=== PATIENT | female | born 2005 | race Caucasian/White ===

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

== ENCOUNTER 2024-03-11 08:38 | Emergency (ER) | payer BC, SELFPAY ==
[2024-03-11 08:41] VITALS: BP 157/98; PULSE 77; RESP 14; TEMP 36.6; O2SAT 100
[2024-03-11 08:49] VITALS: RESP 14
--- NOTE | 2024-03-11 09:00 | DI.CT_ITS ---
Exam(s) CT ABDOMEN PELVIS W EXAM: CT ABDOMEN PELVIS W CLINICAL HISTORY: LLQ abd pain, Vomiting,. TECHNIQUE: Imaging Protocol: Axial computed tomography images with coronal and sagittal reformatted images were created and reviewed CONTRAST MATERIAL: Intravenous: Omnipaque-350 100cc Oral: None COMPARISON: No exams were available for comparison FINDINGS: VISUALIZED LUNG BASES: No nodules nor pleural effusions evident. ABDOMEN: There is no ascites. LIVER: There are no focal hepatic lesions evident. No dilated intrahepatic ducts. GALLBLADDER/BILIARY: No obvious gallbladder pathology. CBD is not dilated. PANCREAS: No evidence of pancreatic mass nor dilatation of the pancreatic duct. SPLEEN: Spleen is not enlarged. No obvious intrasplenic lesions. Splenic and portal veins are paten t. ADRENALS: There are no significant adrenal masses. KIDNEYS:No cysts evident. No solid renal masses. No calculi nor hydronephrosis.. ABDOMINAL AORTA: Abdominal aorta is not enlarged. LYMPH NODES:There is no retroperitoneal nor paraaortic adenopathy. ABDOMINAL WALL: No evidence of significant anterior abdominal wall nor inguinal hernia. GI: There is no evidence of bowel obstruction, free air, nor abscess. PELVIS: GI: No evidence of appendicitis.No evidence of sigmoid diverticulitis. LYMPH NODES: There is no intrapelvic nor inguinal adenopathy. REPRODUCTIVE: Uterus anteverted and exhibits normal size. There is a E peripherally enhancing corpus luteal cyst in the left ovary which measures 2 x 1.5 cm. Small follicular cysts are noted in the ri ght ovary. No extraovarian adnexal masses and no free fluid in the pelvis evident. URINARY BLADDER: Uniform thickening of the urinary bladder wall is probably related to under distensi on versus cystitis. There are no blood clots in the bladder lumen. OSSEOUS: No fractures and no significant osseous lesions. There are bilateral pars interarticularis defects evident at the L5 level. There is minimal anteroli sthesis of L5 upon S1. Sacroiliac joints appear unremarkable. IMPRESSION: 1. No evidence of appendicitis nor diverticulitis. 2. There is a peripherally enhancing 2 x 1.5 cm corpus luteal cyst in left ovary. 3. Uniform thickening of the urinary bladder wall is probably due to under distension of the bladder but cannot exclude cystitis. Correlation with clinical findings and urinalysis recommended. 4. Bilateral pars defects at L5 level incidentally noted. Minimal if any significant listhesis seen at this level and no disc space narrowing. Called by myself to ER provider 03/11/2024 10:50 a.m. RADIATION DOSE DELIVERED: Total DLP DATA REPOSITORY: All CT scans at this facility are submitted to the National Radiology Data Registry (NRDR) Dose Index Registry (DIR) with the [employer] (ACR). RADIATION OPTIMIZATION: All CT scans at this facility use at least one of these dose optimization te chniques: automated exposure control; mA and/or kV adjustment per patient size (includes targeted exa ms where dose is matched to clinical indication); or iterative reconstruction.
--- NOTE | 2024-03-11 09:13 | DI.RAD_ITS ---
Exam(s) XR CHEST 2V PA LATERAL EXAM: XR CHEST 2V PA LATERAL CLINICAL HISTORY: Cough, URI, PUI. TECHNIQUE: 2D digital imaging was performed. COMPARISON: No exams were available for comparison FINDINGS: 2 views: Heart size is normal. The mediastinum is not widened. Lungs are clear. No infiltrates nor pleural effusions. IMPRESSION: No acute pulmonary findings. DATA REPOSITORY: RADIATION DOSE DELIVERED:
--- NOTE | 2024-03-11 09:14 | ED.GENADUL_ITS ---
Discharge Plan Disposition Patient Disposition: Home Condition: Stable Discharge Details Clinical Impression: Left ovarian cyst, Vomiting, Viral URI Primary Care Provider: Brennon Serra ED Provider: Rosa Maria Singh Home Meds and New Rx's Prescriptions: New ondansetron 4 mg tablet,disintegrating 4 mg PO Q8H PRN (Reason: nausea and vomiting) 4 Days Qty: 12 0RF Rx Instructions: Take 1 tablet up to 3 times daily as needed for nausea and vomiting 20 minutes prior to meals. No Action magnesium 200 mg tablet 400 mg PO DAILY Children Multivitamin Tablet,Chewable 1 tab PO DAILY ashwagandha extract 120 mg capsule See Rx Instructions PO .COMPLEX Rx Instructions: orally; taking Discharge Instructions Instructions: Viral Upper Respiratory Infection, Adult (DC), Nausea and Vomiting, Adult ED, Ovarian Cyst ED Additional Instructions: At this time CT shows a left ovarian cyst. Some women have these more often around ovulation, this most likely is what is causing her pain. No evidence of of COVID flu RSV or strep at this time chest x-ray within normal limits. No evidence for urinary tract infection. Labs are largely within normal limits. You are slightly dehydrated you were given some IV fluids here. Please take the nausea medication as directed up to 3 times daily 20 minutes before eating or drinking anything as prescribed. Follow up with primary care provider in 3-5 days. Return to ED sooner if any worsening or concerns. Increase oral fluids while having vomiting and diarrhea you may increase electrolyte drinks such as Gatorade or similar. Referrals: [facility] [Provider Group] - 5 days (Left ovarian cyst) Brennon Serra, [employer] [Primary Care Provider] - 2 weeks HPI General Mode of arrival: ambulatory . Date/Time Provider Initiated Documentation: 03/11/24 09:02 . Limitations to Documentation: no limitations . Information obtained by: patient, RN notes reviewed and old records reviewed . HPI Narrative: 18-year-old female presents to the ER with a chief complaint of emesis at least once a week which she reports is chronic. Associated with left lower quadrant abdominal cramping, she also reports URI type symptoms, cold sweats, runny nose ear pain loss of hearing to her left ear and productive cough with green sputum. Also associated with diarrhea. Denies any sick contacts or recent travel. She had a negative home COVID test on Saturday. No significant past medical history meds or allergies. Last normal menstrual period but transition is approximately 1 month ago 02/15/2024. Denies any possibility of . She denies smoking drugs or alcohol. Related Data Home Medications ?Medication ?Instructions ?Recorded ?Confirmed magnesium 200 mg tablet 400 mg PO DAILY 07/10/21 03/11/24 pediatric multivitamin no.136 1 tab PO DAILY 08/22/22 03/11/24 (Children Multivitamin chewable tablet) ashcristodha extract 120 mg capsule See Rx Instructions PO .COMPLEX 09/12/23 03/11/24 ondansetron 4 mg disintegrating 4 mg PO Q8H PRN nausea and 03/11/24 tablet vomiting 4 days #12 tabs Previous Rx's ?Medication ?Instructions ?Recorded ondansetron 4 mg disintegrating 4 mg PO Q8H PRN nausea and 03/11/24 tablet vomiting 4 days #12 tabs Allergies Allergy/AdvReac Type Severity Reaction Status Date / Time No Known Allergies Allergy Verified 03/11/24 08:51 General Stated Complaint: Nausea/Vomit/Diar MELANIA: 3 Review of Systems All systems reviewed & are unremarkable except as noted in HPI and below Gastrointestinal Gastrointestinal: Reports abdominal pain, Reports diarrhea, Reports nausea, Reports vomiting and Denies hematemesis Exam Narrative Exam Narrative: Constitutional: Alert and oriented x3. Appears stated age. Normal body habitus. Head: Normocephalic, no trauma. Eyes: Pupils PERRL, Red reflex noted, EOM's intact. Eyelids symmetrical without lesions, discharge, or swelling. ENT: Bilateral TM's hard to visualize due to very small ear canals, no erythema or bulging TMs what I could see,, External ear normal to inspection, no mastoid TTP, swelling, or erythema, Nasal turbinates WNL, no nasal discharge. Normal dentition, Posterior pharynx slightly erythemic, uvula midline, no exudate. Chest: RRR, Normal S1, S2, distal pulses intact. Resp: Lungs clear to auscultation bilaterally, no wheezes, rales, or rhonchi. Abdomen: Soft, non-distended, Normoactive bowel sounds all 4 quads. Musculoskeletal: Normal gait, Moves all 4 extremities without difficulty. Skin: No suspicious rashes or lesions. Capillary refill less than 2 sec. Neurologic: Cranial nerves II-XII intact. Alert and oriented x 3. Motor: No deficits noted. Sensory: Intact bilaterally all 4 extremities. Hematologic/Lymphatic: No ecchymosis, no lymphadenopathy. Course Vital Signs Vital signs: Vital Signs Temperature 36.6 C 03/11/24 08:41 Pulse 77 03/11/24 08:41 Respiratory Rate 14 03/11/24 08:41 Blood Pressure 157/98 H 03/11/24 08:41 Pulse Oximetry 100 03/11/24 08:41 Temperature 36.6 C 03/11/24 08:41 Temperature Source Oral 03/11/24 08:41 Pulse 77 03/11/24 08:41 Respiratory Rate 14 03/11/24 08:49 Respiratory Effort Normal, Non-Labored 03/11/24 08:49 Respiratory Depth Normal 03/11/24 08:49 Respiratory Pattern Normal 03/11/24 08:49 Blood Pressure 157/98 H 03/11/24 08:41 Blood Pressure Position Sitting 03/11/24 08:41 Pulse Oximetry 100 03/11/24 08:41 Oxygen Delivery Method Room Air 03/11/24 08:41 Oxygen Flow Rate 0 03/11/24 08:41 Pain Level 0 03/11/24 08:41 Medical Decision Making 18-year-old female presents to the ER with a chief complaint of emesis at least once a week which she reports is chronic. Associated with left lower quadrant abdominal cramping, she also reports URI type symptoms, cold sweats, runny nose ear pain loss of hearing to her left ear and productive cough with green sputum. Also associated with diarrhea. Denies any sick contacts or recent travel. She had a negative home COVID test on Saturday. No significant past medical history meds or allergies. Last normal menstrual period but transition is approximately 1 month ago 02/15/2024. Denies any possibility of . She denies smoking drugs or alcohol. Workup ordered including Fluvid swab, chest x-ray CT abdomen pelvis labs including CBC CMP lipase urinalysis urine test. Labs show white blood cell count 11.57 RBCs 5.44, absolute neutrophil 9.02, CMP largely within normal limits, lipase within normal limits, urinalysis shows trace blood 80 ketones small bilirubin negative leukocytes negative nitrites culture not indicated at this time. COVID flu RSV negative. Chest x-ray shows no acute findings. She does have a left ovarian cyst which may be the cause for her pain. Along with a viral URI. Unclear of what is causing the vomiting, I will discuss with her Pepcid or an antacid and follow-up with her primary care provider. Will send her home with some Cheryl and have her follow-up regarding her ovarian cyst with [facility]. Discussed results she verbalized understanding. All her questions were answered to the best my ability. This text was generated using C[employer] to uation system, please disregard any oddities of phrase or misspellings. Medical Records Medical records reviewed: Yes I reviewed the patient's medical records. Imaging Data Radiologic Study: Imaging: CT Scan Radiologist's impression: Exam(s) a CT:CT abdomen & pelvis w Exam(s) CT ABDOMEN PELVIS W EXAM: CT ABDOMEN PELVIS W CLINICAL HISTORY: LLQ abd pain, Vomiting,. TECHNIQUE: Imaging Protocol: Axial computed tomography images with coronal and sagittal reformatted images were created and reviewed CONTRAST MATERIAL: Intravenous: Omnipaque-350 100cc Oral: None COMPARISON: No exams were available for comparison FINDINGS: VISUALIZED LUNG BASES: No nodules nor pleural effusions evident. ABDOMEN: There is no ascites. LIVER: There are no focal hepatic lesions evident. No dilated intrahepatic d ucts. GALLBLADDER/BILIARY: No obvious gallbladder pathology. CBD is not dilated. PANCREAS: No evidence of pancreatic mass nor dilatation of the pancreatic duct. SPLEEN: Spleen is not enlarged. No obvious intrasplenic lesions. Splenic and portal veins are patent. ADRENALS: There are no significant adrenal masses. KIDNEYS:No cysts evident. No solid renal masses. No calculi nor hydronephr osis.. ABDOMINAL AORTA: Abdominal aorta is not enlarged. LYMPH NODES:There is no retroperitoneal nor paraaortic adenopathy. ABDOMINAL WALL: No evidence of significant anterior abdominal wall nor inguinal hernia. GI: There is no evidence of bowel obstruction, free air, nor abscess. PELVIS: GI: No evidence of appendicitis.No evidence of sigmoid diverticulitis. LYMPH NODES: There is no intrapelvic nor inguinal adenopathy. REPRODUCTIVE: Uterus anteverted and exhibits normal size. There is a E peripherally enhancing corpus luteal cyst in the left ovary which measures 2 x 1.5 cm. Small follicular cysts are noted in the right ovary. No extraovarian adnexal masses and no free fluid in the pelvis evident. URINARY BLADDER: Uniform thickening of the urinary bladder wall is probably related to under distension versus cystitis. There are no blood clots in the bladder lumen. OSSEOUS: No fractures and no significant osseous lesions. There are bilateral pars interarticularis defects evident at the L5 level. There is minimal anterolisthesis of L5 upon S1. Sacroiliac joints appear unremarkable. IMPRESSION: 1. No evidence of appendicitis nor diverticulitis. 2. There is a peripherally enhancing 2 x 1.5 cm corpus luteal cyst in left ovary. 3. Uniform thickening of the urinary bladder wall is probably due to under distension of the bladder but cannot exclude cystitis. Correlation with clinical findings and urinalysis recommended. 4. Bilateral pars defects at L5 level incidentally noted. Minimal if any significant listhesis seen at this level and no disc space narrowing. Called by myself to ER provider 03/11/2024 10:50 a.m. Lab Data Lab results reviewed: Yes I reviewed the patient's lab results. Labs: 03/11/24 09:34 Tonsil - Not Specified Group A Streptococcus Culture - Pending Laboratory Tests Range/Units 03/11/24 09:40 WBC (4.4-10.8) 10^3/uL 11.57 H RBC (3.93-5.22) 10^6/uL 5.44 H Hgb (11.2-15.7) g/dL 14.9 Hct (36.0-46.0) % 44.8 MCV (80-95) fL 82 MCH (27.0-33.0) pg 27.4 MCHC (32.0-36.0) % 33.3 RDW (11.7-14.6) % 12.8 Plt Count (130-400) 10^3/uL 280 MPV (8.0-11.0) fL 10.9 Immature Gran % % 0.3 Neutrophils % % 78.0 Lymphocytes % % 18.2 Monocytes % % 2.9 Eosinophils % % 0.3 Basophils % % 0.3 Nucleated RBC % (0.0-0.3) % 0.0 Absolute Neutrophils (1.2-6.7) 10^3/uL 9.02 H Absolute Lymphocytes (1.2-3.4) 10^3/uL 2.11 Absolute Monocytes (0.1-0.8) 10^3/uL 0.34 Absolute Eosinophils (0.0-0.7) 10^3/uL 0.03 Absolute Basophils (0.0-0.2) 10^3/uL 0.03 Sodium (136-145) mmol/L 141 Potassium (3.5-5.1) mmol/L 3.6 Chloride (98-107) mmol/L 103 Carbon Dioxide (21.0-32.0) mmol/L 26.1 Anion Gap (3-11) mmol/L 11.9 H BUN (7-18) mg/dL 12 Creatinine (0.55-1.02) mg/dL 0.7 Est GFR (CKD-EPI 2020) (mL/min/1.73m2) 127.69 Glucose (74-106) mg/dL 97 Calcium (8.5-10.1) mg/dL 10.1 Magnesium (1.8-2.4) mg/dL 1.9 Total Bilirubin (0.2-1.0) mg/dL 0.35 AST (15-37) U/L 14 L ALT (14-59) U/L 24 Alkaline Phosphatase (46-116) U/L 83 Total Protein (6.4-8.2) g/dL 8.9 H Albumin (3.4-5.0) g/dL 4.4 Lipase (16-77) U/L 26 Urine Color (Yellow) Yellow Urine Clarity (Clear) Clear Urine pH (5-8) 5.5 Ur Specific [place] (1.005-1.025) >= 1.030 H Urine Protein (Neg-Trace) mg/dL Negative Urine Ketones (Negative) mg/dL 80 H Urine Blood (Negative) Trace-lysed H Urine Nitrite (Negative) Negative Urine Bilirubin (Negative) Small H Urine Urobilinogen (Up to 0.2) mg/dL 0.2 Ur Leukocyte Esterase (Negative) Negative Urine RBC (0-2) HPF 0-2 Urine WBC (0-5) HPF Negative Ur Epithelial Cells (Negative) HPF Rare Urine Crystals (Negative) HPF Negative Urine Bacteria (Negative) HPF Negative Urine Casts (Negative) LPF Negative Urine Mucus (Negative) Trace Ur Culture Indicated? No Urine Glucose (Negative) mg/dL Negative COVID-19 Source Nasopharynx SARS-CoV-2 (PCR) (Negative) Negative Influenza Type A (PCR) (Negative) Negative Influenza Type B (PCR) (Negative) Negative RSV (PCR) (Negative) Negative Quality:SDOH Health Related Social Needs: No Data to Display PFSH All Active Problems (Updated 03/11/24 @ 11:08 by Rosa Maria Singh NP) Viral URI (Acute) Vomiting (Acute) Left ovarian cyst (Acute) Dysmenorrhea in adolescent (Acute) improved on Xulane Suicide gesture (Acute) Anxiety (Chronic) Trichotillomania (Acute) Encounter for well adolescent visit (Acute) Hyperhidrosis of palms and soles (Acute 07/13/14) Body mass index, pediatric, 85th percentile to less than 95th percentile for age (Acute 07/13/14) Keratosis pilaris (Acute 08/20/16) Medical History Chronic headaches improved with Magnesium, stopped taking Impacted cerumen of both ears recurrent with small ear canals Hyperhidrosis of feet Surgical History Tooth extraction 7 extractions, spring 2015 Family History Mother Healthy adult on routine physical examination Father Essential hypertension Hypothyroid Sister No problems noted. Grandfather Essential hypertension both GF Heart disease PGF- massive [place] age 62yr- Hyperlipidemia Parkinson disease MGF Social History Smoking/Tobacco Use Status: Never Second Hand Exposure: No Smoking risk assessment performed?: Yes Alcohol Intake: never Drug use: Never Substance use type: does not use Housing: house Communication Needs: None Education Level: high school Details: [employer] Pets and animals: Yes Pets and animals: dog(s) Do you feel safe at home: Yes Do you feel safe in your relationship?: Yes
[2024-03-11 09:46] LABS: Bilirubin Small (Negative); Blood Trace-lysed (Negative); Clarity Clear (Clear); Glucose Negative (Negative); Ketones 80 mg/dL (Negative); Leukocyte Esterase Negative (Negative); Nitrite Negative (Negative); Specific Gravity >= 1.030 (1.005-1.025); Urobilinogen 0.2 mg/dL (Up to 0.2); pH 5.5 (5-8)
[2024-03-11] MEDS: Ondansetron 4 MG/2 ML VIAL IVP (09:48)
[2024-03-11] MEDS: Normal Saline Flush 10 ML SYR IVP (09:48)
[2024-03-11] MEDS: Normal Saline 1,000 ML 1000 ML IV (09:48)
[2024-03-11 09:50] LABS: Abs Immature Grans 0.03 10^3/uL (0.0-0.06); Absolute Basophil Count 0.03 10^3/uL (0.0-0.2); Absolute Eosinophil Count 0.03 10^3/uL (0.0-0.7); Absolute Lymphocyte Count 2.11 10^3/uL (1.2-3.4); Absolute Monocyte Count 0.34 10^3/uL (0.1-0.8); Basophils % 0.3 %; Eosinophils % 0.3 %; HCT 44.8 % (36.0-46.0); HGB 14.9 g/dL (11.2-15.7); Immature Grans % 0.3 %; Lymphocytes % 18.2 %; MCH 27.4 pg (27.0-33.0); MCHC 33.3 % (32.0-36.0); MCV 82 fL (80-95); MPV 10.9 fL (8.0-11.0); Monocytes % 2.9 %; Platelet Count 280 10^3/uL (130-400); RBC 5.44 10^6/uL (3.93-5.22); RDW 12.8 % (11.7-14.6); RDW-SD 38.3 fL; WBC 11.57 10^3/uL (4.4-10.8)
[2024-03-11 09:51] LABS: Absolute Neutrophil Count 9.02 10^3/uL (1.2-6.7)
[2024-03-11 09:57] LABS: Bacteria Negative HPF (Negative); C & S Indicated? No; Casts Negative LPF (Negative); Crystals Negative HPF (Negative); Epithelial Cells Rare HPF (Negative); Mucus Trace (Negative); RBC 0-2 HPF (0-2); WBC Negative HPF (0-5)
[2024-03-11 10:25] LABS: COVID-19 PCR Negative (Negative); Influenza A PCR Negative (Negative); Influenza B PCR Negative (Negative); RSV PCR Negative (Negative)
[2024-03-11] MEDS: Omnipaque 350 MG/ML 100 ML BTL IJ (10:29)
[2024-03-11 10:32] LABS: Source Nasopharynx
[2024-03-11] MEDS: Normal Saline - Diluent 50 ML VIAL IV (10:32)
[2024-03-11 10:37] LABS: ALT 24 U/L (14-59); AST 14 U/L (15-37); Albumin 4.4 g/dL (3.4-5.0); Alkaline Phosphatase 83 U/L (46-116); Anion Gap 11.9 mmol/L (3-11); BUN 12 mg/dL (7-18); Bilirubin, Total 0.35 mg/dL (0.2-1.0); CO2 26.1 mmol/L (21.0-32.0); CREATININE 0.7 mg/dL (0.55-1.02); Calcium 10.1 mg/dL (8.5-10.1); Chloride 103 mmol/L (98-107); Estimated GFR 127.69 (mL/min/1.73m2); Glucose 97 mg/dL (74-106); Lipase 26 U/L (16-77); Magnesium 1.9 mg/dL (1.8-2.4); Potassium 3.6 mmol/L (3.5-5.1); Sodium 141 mmol/L (136-145); Total Protein 8.9 g/dL (6.4-8.2)
[2024-03-11 11:34] VITALS: BP 124/74; PULSE 60; RESP 14; TEMP 37.1; O2SAT 98
== END 2024-03-11 11:51 | disposition home or self-care (01) ==
PROVIDERS: Emergency Provider Registered Nurse Emergency; PCP Nurse Practitioner Pediatrics
DX: R11.2 Nausea with vomiting, unspecified (principal); R19.7 Diarrhea, unspecified; R05.1 Acute cough; J06.9 Acute upper respiratory infection, unspecified; N83.202 Unspecified ovarian cyst, left side; R10.32 Left lower quadrant pain
CPT/HCPCS: 80053; 81025; 83690; 87637; 87880; 96361; 96374; 99285; 71046; 74177; 81003; 81015; 83735; 85025; 87081; 99283; J2405; J3490

== ENCOUNTER 2024-03-19 23:25 | Emergency (ER) | payer BC, SELFPAY ==
[2024-03-19 23:29] VITALS: BP 131/84; PULSE 69; RESP 12; TEMP 36.2; O2SAT 97
--- NOTE | 2024-03-19 23:30 | RT.EKG_ITS ---
APPROVED REPORT Exam: Resting ECG Reason for Exam: palpitations Patient Location: E HR:55 bpm ECG Measurements Heart Rate 55 AXIS ME 143 P 10 QRSd 91 QRS 4 QT 463 T 21 QTc 445 Conclusion Sinus bradycardia...rate< 60 Physician: no stemi
[2024-03-19 23:41] VITALS: PULSE 60; RESP 14; O2SAT 97
[2024-03-19 23:47] VITALS: BP 117/89; PULSE 59; O2SAT 97
[2024-03-19 23:50] VITALS: O2SAT 97
[2024-03-20] VITALS (25 sets, daily range): BP systolic 92–151; BP diastolic 66–101; PULSE 52–85; RESP 11–26; O2SAT 96–100
[2024-03-20 00:16] LABS: Abs Immature Grans 0.03 10^3/uL (0.0-0.06); Absolute Basophil Count 0.02 10^3/uL (0.0-0.2); Absolute Eosinophil Count 0.01 10^3/uL (0.0-0.7); Absolute Lymphocyte Count 1.72 10^3/uL (1.2-3.4); Absolute Monocyte Count 0.82 10^3/uL (0.1-0.8); Absolute Neutrophil Count 6.62 10^3/uL (1.2-6.7); Basophils % 0.2 %; Eosinophils % 0.1 %; HCT 40.4 % (36.0-46.0); HGB 13.6 g/dL (11.2-15.7); Immature Grans % 0.3 %; Lymphocytes % 18.7 %; MCH 27.6 pg (27.0-33.0); MCHC 33.7 % (32.0-36.0); MCV 82 fL (80-95); MPV 10.9 fL (8.0-11.0); Monocytes % 8.9 %; Neutrophils % 71.8 %; Platelet Count 286 10^3/uL (130-400); RBC 4.92 10^6/uL (3.93-5.22); RDW-SD 38.2 fL; WBC 9.22 10^3/uL (4.4-10.8)
[2024-03-20] MEDS: Lactated Ringers 1,000 ML 1000 ML IV (00:17)
[2024-03-20] MEDS: Metoclopramide 10 MG/2 ML VIAL IVP (00:21)
[2024-03-20] MEDS: Normal Saline 50 ML 500 ML (00:21)
[2024-03-20] MEDS: Ondansetron 4 MG/2 ML VIAL IVP (00:24)
[2024-03-20 00:35] LABS: Bilirubin Negative (Negative); Blood Negative (Negative); Clarity Sl Cloudy (Clear); Glucose Negative (Negative); Ketones 15 mg/dL (Negative); Leukocyte Esterase Negative (Negative); Nitrite Negative (Negative); Specific Gravity >= 1.030 (1.005-1.025); Urobilinogen 0.2 mg/dL (Up to 0.2)
[2024-03-20 00:42] LABS: ALT 22 U/L (14-59); AST 14 U/L (15-37); Albumin 4.2 g/dL (3.4-5.0); Alkaline Phosphatase 70 U/L (46-116); Anion Gap 11.7 mmol/L (3-11); BUN 13 mg/dL (7-18); Bilirubin, Total 0.39 mg/dL (0.2-1.0); CO2 26.3 mmol/L (21.0-32.0); CREATININE 0.9 mg/dL (0.55-1.02); Chloride 105 mmol/L (98-107); Estimated GFR 94.44 (mL/min/1.73m2); Glucose 106 mg/dL (74-106); Lipase 19 U/L (16-77); Potassium 3.4 mmol/L (3.5-5.1); Sodium 143 mmol/L (136-145); TSH (W/Ref FT4) 2.64 uIU/mL (0.52-4.13); Total Protein 8.2 g/dL (6.4-8.2)
--- NOTE | 2024-03-20 00:59 | W.ED.GENAD ---
Discharge Plan Disposition Patient Disposition: Home Condition: Good Discharge Details Clinical Impression: Nausea & vomiting, Dehydration Primary Care Provider: [facility]Local ED Provider: Zackery Sotelo Home Meds and New Rx's Prescriptions: No Action magnesium 200 mg tablet 400 mg PO DAILY Children Multivitamin Tablet,Chewable 1 tab PO DAILY ashwagandha extract 120 mg capsule See Rx Instructions PO .COMPLEX Rx Instructions: orally; taking ondansetron 4 mg tablet,disintegrating 4 mg PO PRN Patient Comments: TAKE ONE TABLET BY MOUTH UP TO THREE TIMES DAILY NEEDED FOR NAUSEA AND VOMITING 20 MIN. PRIOR TO MEALS norelgestromin-ethin.estradiol [Zafemy] 150-35 mcg/24 hr patch weekly 1 patch transdermal Q7D Discharge Instructions Instructions: Dehydration, Adult ED, Nausea and Vomiting, Adult ED Additional Instructions: At this time your laboratory workup has returned very reassuring. You were dehydrated and you have been rehydrated. Please take your home Zofran as needed. Continue to drink plenty of fluids at home. If you notice any worsening of your symptoms, or any new symptoms such as vomiting, diarrhea, fever, chills, shortness of breath, chest pain, numbness, weakness, or fainting , please return immediately to the emergency department for reevaluation. Please follow up with your primary care provider as soon as possible for reassessment and reevaluation. As always, it was a pleasure participating in your medical care today. HPI General Date/Time Provider Initiated Documentation: 03/19/24 23:51. HPI Narrative: This is a 18-year-old female with a past medical history of recently diagnosed left ovarian cyst 7 days ago, who presents today for nausea vomiting and diarrhea. About 2 weeks ago she developed mild left lower quadrant achiness, she went into the ER 1 week ago and was diagnosed with a small left-sided ovarian cyst. Over the past week the pain has essentially resolved, however today she developed nausea vomiting and diarrhea, she had about 20 episodes of vomiting. She denies any blood in her stool or vomitus. She did try taking Zofran at home but she was still not able to keep anything down. No other complaints at this time, no other modifying factors. Related Data Home Medications ?Medication ?Instructions ?Recorded ?Confirmed magnesium 200 mg tablet 400 mg PO DAILY 07/10/21 03/19/24 pediatric multivitamin no.136 1 tab PO DAILY 08/22/22 03/19/24 (Children Multivitamin chewable tablet) wilbera extract 120 mg capsule See Rx Instructions PO .COMPLEX 09/12/23 03/19/24 norelgestromin 150 mcg-e.estradiol 1 patch transdermal Q7D 03/19/24 03/19/24 35 mcg/24 hr weekly transderm patch (Zafemy) ondansetron 4 mg disintegrating 4 mg PO PRN 03/19/24 03/19/24 tablet Allergies Allergy/AdvReac Type Severity Reaction Status Date / Time No Known Allergies Allergy Verified 03/19/24 23:41 General Stated Complaint: Palpitatns MELANIA: 2 Review of Systems All systems reviewed & are unremarkable except as noted in HPI and below Exam Narrative Exam Narrative: 1.Const: Well-nourished, Well-developed, appearing stated age 2.Eyes: PERRL, no conjunctival injection, and symmetrical lids. 3.ENT: Atraumatic external nose and ears. Dry MM. Neck: Symmetric, trachea midline, No thyromegaly. 4.CVS: +S1/S2, No murmurs or gallops. Peripheral pulses 2+ and equal in all extremities. Brisk capillary refill in all extremities. 5.RESP: Unlabored respiratory effort. Clear to auscultation bilaterally. No wheezes rales or rhonchi 6.GI: Soft, Nontender/Nondistended, No hepatosplenomegaly. No guarding or rebound. No pain at [place]'s point, negative Aguilar sign. 7.MSK: Normocephalic/Atraumatic, Extremities w/o deformity or ttp No cyanosis or clubbing, Normal movement of all extremities 8.Skin: Warm, Dry. No rashes or lesions. 9.Neuro: therapeutic assistant II-XII grossly intact. Sensation grossly intact, no focal neurologic deficits. 10.Psych: (AAO) x3. Appropriate mood and affect Course Vital Signs Vital signs: Vital Signs Temperature 36.2 C L 03/19/24 23:29 Pulse 69 03/19/24 23:29 Respiratory Rate 12 03/19/24 23:29 Blood Pressure 131/84 03/19/24 23:29 Pulse Oximetry 97 03/19/24 23:29 Temperature 36.2 C L 03/19/24 23:29 Temperature Source Skin 03/19/24 23:29 Pulse 56 L 03/20/24 00:31 Pulse 65 03/20/24 00:31 Respiratory Rate 21 03/20/24 00:31 Respiratory Effort Normal 03/19/24 23:43 Blood Pressure 150/88 H 03/20/24 00:31 Blood Pressure Mean 107 03/20/24 00:31 Blood Pressure Position Sitting 03/19/24 23:29 Pulse Oximetry 96 03/20/24 00:31 Oxygen Delivery Method Room Air 03/19/24 23:29 Oxygen Flow Rate 0 03/19/24 23:29 Pain Level 5 03/19/24 23:29 Comment pain L lower quad 03/19/24 23:29 Lab/Test Results Lab/Test Results: Laboratory Tests Range/Units 03/20/24 03/20/24 00:10 00:30 WBC (4.4-10.8) 10^3/uL 9.22 RBC (3.93-5.22) 10^6/uL 4.92 Hgb (11.2-15.7) g/dL 13.6 Hct (36.0-46.0) % 40.4 MCV (80-95) fL 82 MCH (27.0-33.0) pg 27.6 MCHC (32.0-36.0) % 33.7 RDW (11.7-14.6) % 13.0 Plt Count (130-400) 10^3/uL 286 MPV (8.0-11.0) fL 10.9 Immature Gran % % 0.3 Neutrophils % % 71.8 Lymphocytes % % 18.7 Monocytes % % 8.9 Eosinophils % % 0.1 Basophils % % 0.2 Nucleated RBC % (0.0-0.3) % 0.0 Absolute Neutrophils (1.2-6.7) 10^3/uL 6.62 Absolute Lymphocytes (1.2-3.4) 10^3/uL 1.72 Absolute Monocytes (0.1-0.8) 10^3/uL 0.82 H Absolute Eosinophils (0.0-0.7) 10^3/uL 0.01 Absolute Basophils (0.0-0.2) 10^3/uL 0.02 Sodium (136-145) mmol/L 143 Potassium (3.5-5.1) mmol/L 3.4 L Chloride (98-107) mmol/L 105 Carbon Dioxide (21.0-32.0) mmol/L 26.3 Anion Gap (3-11) mmol/L 11.7 H BUN (7-18) mg/dL 13 Creatinine (0.55-1.02) mg/dL 0.9 Est GFR (CKD-EPI 2020) (mL/min/1.73m2) 94.44 Glucose (74-106) mg/dL 106 Calcium (8.5-10.1) mg/dL 10.0 Magnesium (1.8-2.4) mg/dL 2.0 Total Bilirubin (0.2-1.0) mg/dL 0.39 AST (15-37) U/L 14 L ALT (14-59) U/L 22 Alkaline Phosphatase (46-116) U/L 70 Total Protein (6.4-8.2) g/dL 8.2 Albumin (3.4-5.0) g/dL 4.2 Lipase (16-77) U/L 19 TSH (0.52-4.13) uIU/mL 2.64 Urine Color (Yellow) Yellow Urine Clarity (Clear) Sl Cloudy Urine pH (5-8) 6.0 Ur Specific [place] (1.005-1.025) >= 1.030 H Urine Protein (Neg-Trace) mg/dL Trace Urine Ketones (Negative) mg/dL 15 H Urine Blood (Negative) Negative Urine Nitrite (Negative) Negative Urine Bilirubin (Negative) Negative Urine Urobilinogen (Up to 0.2) mg/dL 0.2 Ur Leukocyte Esterase (Negative) Negative Urine Glucose (Negative) mg/dL Negative Medical Decision Making This is a 18-year-old female with a past medical history of recently diagnosed left ovarian cyst 7 days ago, who presents today for nausea vomiting and diarrhea. About 2 weeks ago she developed mild left lower quadrant achiness, she went into the ER 1 week ago and was diagnosed with a small left-sided ovarian cyst. Over the past week the pain has essentially resolved, however today she developed nausea vomiting and diarrhea, she had about 20 episodes of vomiting. She denies any blood in her stool or vomitus. She did try taking Zofran at home but she was still not able to keep anything down. No other complaints at this time, no other modifying factors. Exam demonstrates well-appearing female, dry mucous membranes, no abdominal pain or tenderness. No signs of an acute surgical abdomen. No pain at [place]'s point, negative Aguilar sign. Symptoms are likely secondary to a viral gastroenteritis. Symptoms inconsistent with appendicitis or cholecystitis. Differential does include pancreatitis. No recent alcohol use. We we will rehydrate with a liter of LR, give antiemetics, monitor closely and reassess. 8 AM Patient was reassessed, laboratory workup demonstrates no white count, electrolytes normal, renal function excellent. Urinalysis shows no signs of infection. Patient feeling much better after medications and fluids. Repeat abdominal exam shows no signs of an acute surgical abdomen, abdominal tenderness or other concerning etiology. Symptoms appear consistent with mild viral gastroenteritis. Patient is requesting discharge, she will be discharged home with recommendations for continued antiemetics, easy low-fat high-fiber diet, and close follow-up with PCP. Discussed red flags to return to return. I have extensively reviewed the treatment plan and discharge instructions with the patient. I have addressed all patient concerns at this time. The patient was made aware of what symptoms to monitor for that would warrant a return to the emergency department. Discussed the plan with the patient, they demonstrate verbal understanding and agreement with our assessment and plan at this time. The documentation in this chart was dictated using [employer] dictation software. Please excuse any dictation errors. Quality:SDOH Health Related Social Needs: No Data to Display PFSH All Active Problems (Updated 03/20/24 @ 02:26 by Zackery Sotelo DO) Dehydration (Acute) Nausea & vomiting (Acute) Viral URI (Acute) Vomiting (Acute) Left ovarian cyst (Acute) Physiologic, corpus luteum. 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 Grandfather Essential hypertension both GF Heart disease PGF- massive [place] age 62yr- Hyperlipidemia Parkinson disease MGF Social History Smoking/Tobacco Use Status: Never Second Hand Exposure: No Smoking risk assessment performed?: Yes Alcohol Intake: current Alcohol Intake frequency: holidays/special occasions only Drug use: Rarely Substance use type: marijuana Housing: house Communication Needs: None Education Level: high school Details: [employer] Pets and animals: Yes Pets and animals: dog(s) Do you feel safe at home: Yes Do you feel safe in your relationship?: Yes Female Reproductive History Menstrual Age of Menarche: 14 Duration of menses: 3-5 days History History 0 Para Hx # Term Pregnancies Multiple births Hx # Pregnancies Ectopic pregnancies AB induced Hx Number of Living Children AB spontaneous
--- NOTE | 2024-03-20 02:25 | NUR.NOTE ---
Nursing Note: Pt up to bathroom. states she is feeling much better.
== END 2024-03-20 02:45 | disposition home or self-care (01) ==
LOC: ER 03-20 02:26 → RED 03-20 02:42
PROVIDERS: Emergency Provider Student in an Organized Health Care Education/Training Program
DX: E86.0 Dehydration (principal); R11.2 Nausea with vomiting, unspecified; R10.9 Unspecified abdominal pain
CPT/HCPCS: 36415; 80053; 83690; 93005; 96360; 96361; 99284; 81003; 83735; 84443; 85025; 93010; J2405; J2765

== ENCOUNTER 2024-05-01 01:00 | Emergency (ER) | payer BC, SELFPAY ==
[2024-05-01 01:03] VITALS: BP 101/77; PULSE 62; RESP 18; TEMP 36.6; O2SAT 97
--- NOTE | 2024-05-01 01:09 | ED.GENADUL_ITS ---
Discharge Plan Disposition Patient Disposition: Home Condition: Good Discharge Details Clinical Impression: Vomiting Primary Care Provider: Unknown,Unknown ED Provider: Malika Garber Home Meds and New Rx's Prescriptions: New prochlorperazine maleate 5 mg tablet 5 mg PO QID PRNQty: 10 0RF Continued pantoprazole 40 mg tablet,delayed release (DR/EC) 40 mg PO DAILY norelgestromin-ethin.estradiol [Zafemy] 150-35 mcg/24 hr patch weekly 1 patch transdermal Q7D Discontinued Children Multivitamin Tablet,Chewable 1 tab PO DAILY metoclopramide HCl [Reglan] 10 mg tablet 10 mg PO Q6H PRN Discharge Instructions Instructions: Nausea and Vomiting, Adult ED Additional Instructions: Stop taking reglan. You can take prochlorperazine up to every 6 hours as needed for vomiting. Call your primary care doctor today to schedule an appointment for within one week to followup on your visit here. Return to the emergency department for new or worsening symptoms including fever, new/different/worse abdominal pain, inability to keep down fluids, or if you have any other concerns. HPI General Mode of arrival: ambulatory . Date/Time Provider Initiated Documentation: 05/01/24 01:01 . Limitations to Documentation: no limitations . Information obtained by: patient . HPI Narrative: 18yo female presenting with 3 days of N/V. Unable to keep down fluids today, too many to count episodes of nonbloody non bilious emesis. Diffuse mild abdominal pain and cramping. Has had similar episodes in the past which have improved wtih reglan; has been using some leftover from a prior prescription and has not been helping. No fevers, rash, diarrhea, dysuria, hematuria, vaginal discharge, or other concerns. Related Data Home Medications ?Medication ?Instructions ?Recorded ?Confirmed norelgestromin 150 mcg-e.estradiol 1 patch transdermal Q7D 03/19/24 05/01/24 35 mcg/24 hr weekly transderm patch (Zafemy) pantoprazole 40 mg tablet,delayed 40 mg PO DAILY 03/24/24 05/01/24 release prochlorperazine maleate 5 mg 5 mg PO QID PRN #10 tabs 05/01/24 tablet Previous Rx's ?Medication ?Instructions ?Recorded prochlorperazine maleate 5 mg 5 mg PO QID PRN #10 tabs 05/01/24 tablet Allergies Allergy/AdvReac Type Severity Reaction Status Date / Time No Known Allergies Allergy Verified 05/01/24 01:06 General Stated Complaint: Nausea/Vomit/Diar MELANIA: 3 Review of Systems Narrative: see HPI Exam Narrative Exam Narrative: General: Alert, well appearing, well nourished, in no acute distress. Head: Normocephalic, atraumatic Neck: Trachea midline, ?Neck supple. ENT: ?Dry MM.? No oropharygeal lesions or exudate. Cardiac: ?RRR, no murmurs appreciated Resp: No respiratory distress. CTAB. Abd: ?Soft, non-distended, nontender. : ?No suprapubic tenderness. No CVA tenderness. Extremities: ?No deformities.? No peripheral edema. Neurologic: GCS 15. ? Moves all extremities freely against gravity Course Vital Signs Vital signs: Vital Signs Temperature 36.6 C 05/01/24 01:03 Pulse 62 05/01/24 01:03 Respiratory Rate 18 05/01/24 01:03 Blood Pressure 101/77 05/01/24 01:03 Pulse Oximetry 97 05/01/24 01:03 Temperature 36.6 C 05/01/24 01:03 Temperature Source Oral 05/01/24 01:03 Pulse 62 05/01/24 01:03 Respiratory Rate 18 05/01/24 01:03 Respiratory Effort Normal, Non-Labored 05/01/24 01:06 Blood Pressure 101/77 05/01/24 01:03 Blood Pressure Position Sitting 05/01/24 01:03 Pulse Oximetry 97 05/01/24 01:03 Oxygen Delivery Method Room Air 05/01/24 01:03 Oxygen Flow Rate 0 05/01/24 01:03 Pain Level 6 05/01/24 01:03 Medical Decision Making 18yo female presenting with 3 days of N/V. Unable to keep down fluids today, too many to count episodes of nonbloody non bilious emesis, also has diffuse mild abdominal pain and cramping. Vital signs reassuring on arrival. Dry MM on exam, abdomen reassuring with no tenderness. She reports zofran does not typically work for her, reglan today with some improvement for a few hours but then resumed vomiting. Will give 1L IVFB here and try droperidol. Abdominal exam reassuring against acute intraabdominal pathology; unlikely appendicitis, cholecystitis, choledocolithiasis, pancreatitis, bowel obstruction. No focal lower abdominal pain to suggest ovarian cyst/torsion/tuboovarian abscess. Would not get CT scan at this time. Labs reviewed as below, CBC reassuring with mild leukocytosis, CMP with hypokalemia at 3.0, Mg normal, lipase normal. Upreg negative. UA not infected. EKG with no hypokalemic changes. Potassium replacement ordered. On reassessment pt reports symptoms have improved. PO challenged and tolerated well. Requesting discharge home which is reasonable. Discharged to followup with PCP; discharge instructions and return precautions were reviewed with patient who verbalized understanding. All questions were answered and she is in full agreement with the plan. Lab Data Lab results reviewed: Yes I reviewed the patient's lab results. Labs: Laboratory Tests Range/Units 05/01/24 05/01/24 01:09 01:26 WBC (4.4-10.8) 10^3/uL 11.31 H RBC (3.93-5.22) 10^6/uL 5.31 H Hgb (11.2-15.7) g/dL 14.6 Hct (36.0-46.0) % 42.7 MCV (80-95) fL 80 MCH (27.0-33.0) pg 27.5 MCHC (32.0-36.0) % 34.2 RDW (11.7-14.6) % 13.0 Plt Count (130-400) 10^3/uL 299 MPV (8.0-11.0) fL 11.3 H Immature Gran % % 0.3 Neutrophils % % 71.8 Lymphocytes % % 20.1 Monocytes % % 7.5 Eosinophils % % 0.0 Basophils % % 0.3 Nucleated RBC % (0.0-0.3) % 0.0 Absolute Neutrophils (1.2-6.7) 10^3/uL 8.12 H Absolute Lymphocytes (1.2-3.4) 10^3/uL 2.27 Absolute Monocytes (0.1-0.8) 10^3/uL 0.85 H Absolute Eosinophils (0.0-0.7) 10^3/uL 0.00 Absolute Basophils (0.0-0.2) 10^3/uL 0.03 Sodium (136-145) mmol/L 138 Potassium (3.5-5.1) mmol/L 3.0 L Chloride (98-107) mmol/L 102 Carbon Dioxide (21.0-32.0) mmol/L 22.2 Anion Gap (3-11) mmol/L 13.8 H BUN (7-18) mg/dL 18 Creatinine (0.55-1.02) mg/dL 0.9 Est GFR (CKD-EPI 2020) (mL/min/1.73m2) 94.44 Glucose (74-106) mg/dL 117 H Calcium (8.5-10.1) mg/dL 10.1 Magnesium (1.8-2.4) mg/dL 2.1 Total Bilirubin (0.2-1.0) mg/dL 0.83 AST (15-37) U/L 20 ALT (14-59) U/L 30 Alkaline Phosphatase (46-116) U/L 68 Total Protein (6.4-8.2) g/dL 8.7 H Albumin (3.4-5.0) g/dL 4.5 Lipase (16-77) U/L 33 Urine Color (Yellow) Yellow Urine Clarity (Clear) Clear Urine pH (5-8) 6.0 Ur Specific [place] (1.005-1.025) >= 1.030 H Urine Protein (Neg-Trace) mg/dL 30 H Urine Ketones (Negative) mg/dL 80 H Urine Blood (Negative) Trace-lysed H Urine Nitrite (Negative) Negative Urine Bilirubin (Negative) Small H Urine Urobilinogen (Up to 0.2) mg/dL 0.2 Ur Leukocyte Esterase (Negative) Negative Urine RBC (0-2) HPF 3-5 H Urine WBC (0-5) HPF Negative Ur Epithelial Cells (Negative) HPF Moderate Urine Crystals (Negative) HPF Negative Urine Bacteria (Negative) HPF Few Urine Casts (Negative) LPF Negative Urine Mucus (Negative) Trace Ur Culture Indicated? 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 Grandfather Essential hypertension both GF Heart disease PGF- massive [place] age 62yr- Hyperlipidemia Parkinson disease MGF Social History Smoking/Tobacco Use Status: Never Second Hand Exposure: No Smoking risk assessment performed?: Yes Alcohol Intake: current Alcohol Intake frequency: holidays/special occasions only Drug use: Rarely Substance use type: marijuana Housing: house Communication Needs: None Education Level: high school Details: [employer] Pets and animals: Yes Pets and animals: dog(s) Do you feel safe at home: Yes Do you feel safe in your relationship?: Yes Female Reproductive History Menstrual Age of Menarche: 14 Duration of menses: 3-5 days History History 0 Para Hx # Term Pregnancies Multiple births Hx # Pregnancies Ectopic pregnancies AB induced Hx Number of Living Children AB spontaneous
[2024-05-01 01:30] LABS: Bilirubin Small (Negative); Blood Trace-lysed (Negative); Clarity Clear (Clear); Glucose Negative (Negative); Ketones 80 mg/dL (Negative); Leukocyte Esterase Negative (Negative); Nitrite Negative (Negative); Specific Gravity >= 1.030 (1.005-1.025); Urobilinogen 0.2 mg/dL (Up to 0.2)
[2024-05-01 01:32] LABS: Bacteria Few HPF (Negative); C & S Indicated? No; Casts Negative LPF (Negative); Crystals Negative HPF (Negative); Epithelial Cells Moderate HPF (Negative); Mucus Trace (Negative); WBC Negative HPF (0-5)
[2024-05-01 01:35] LABS: Abs Immature Grans 0.03 10^3/uL (0.0-0.06); Absolute Basophil Count 0.03 10^3/uL (0.0-0.2); Absolute Lymphocyte Count 2.27 10^3/uL (1.2-3.4); Absolute Monocyte Count 0.85 10^3/uL (0.1-0.8); Absolute Neutrophil Count 8.12 10^3/uL (1.2-6.7); Basophils % 0.3 %; HCT 42.7 % (36.0-46.0); HGB 14.6 g/dL (11.2-15.7); Immature Grans % 0.3 %; Lymphocytes % 20.1 %; MCH 27.5 pg (27.0-33.0); MCHC 34.2 % (32.0-36.0); MCV 80 fL (80-95); MPV 11.3 fL (8.0-11.0); Monocytes % 7.5 %; Neutrophils % 71.8 %; Platelet Count 299 10^3/uL (130-400); RBC 5.31 10^6/uL (3.93-5.22); RDW-SD 37.2 fL; WBC 11.31 10^3/uL (4.4-10.8)
[2024-05-01] MEDS: Droperidol 5 MG/2 ML VIAL 2.5 MG IVP (01:40)
[2024-05-01] MEDS: Normal Saline 1,000 ML 1000 ML IV (01:40)
[2024-05-01 01:45] LABS: Magnesium 2.1 mg/dL (1.8-2.4)
[2024-05-01 01:52] LABS: ALT 30 U/L (14-59); AST 20 U/L (15-37); Albumin 4.5 g/dL (3.4-5.0); Alkaline Phosphatase 68 U/L (46-116); Anion Gap 13.8 mmol/L (3-11); BUN 18 mg/dL (7-18); Bilirubin, Total 0.83 mg/dL (0.2-1.0); CO2 22.2 mmol/L (21.0-32.0); CREATININE 0.9 mg/dL (0.55-1.02); Calcium 10.1 mg/dL (8.5-10.1); Chloride 102 mmol/L (98-107); Estimated GFR 94.44 (mL/min/1.73m2); Glucose 117 mg/dL (74-106); Lipase 33 U/L (16-77); Sodium 138 mmol/L (136-145); Total Protein 8.7 g/dL (6.4-8.2)
--- NOTE | 2024-05-01 02:15 | RT.EKG_ITS ---
APPROVED REPORT Exam: Resting ECG Reason for Exam: hypokalemia Patient Location: E HR:59 bpm ECG Measurements Heart Rate 59 AXIS OR 134 P 13 QRSd 90 QRS 7 QT 435 T 21 QTc 432 Conclusion Bradycardia with irregular rate...V-rate 53- 69, mean < [address] segment or T wave abnormalitites to suggest occlusive [place]
[2024-05-01] MEDS: Potassium Chloride Liquid 20 MEQ PKT 40 MEQ PO (02:29)
[2024-05-01] MEDS: POTASSIUM CHLORIDE 10 MEQ/100 ML BAG 100 MEQ IVINF (02:29)
[2024-05-01 03:24] VITALS: BP 130/73; PULSE 71; RESP 16; O2SAT 98
[2024-05-01] MEDS: Prochlorperazine 5 MG TAB PO (03:47)
== END 2024-05-01 03:48 | disposition home or self-care (01) ==
PROVIDERS: Emergency Provider Student in an Organized Health Care Education/Training Program
DX: R11.2 Nausea with vomiting, unspecified (principal); R10.9 Unspecified abdominal pain; R00.1 Bradycardia, unspecified
CPT/HCPCS: 80053; 83690; 93005; 96361; 96365; 96375; 99284; 81003; 81015; 83735; 85025; 93010; J1790; J3480

== ENCOUNTER 2024-05-02 03:52 | Emergency (ER) | payer BC, SELFPAY ==
[2024-05-02] VITALS (18 sets, daily range): BP systolic 125–165; BP diastolic 64–87; PULSE 56–98; RESP 13–24; TEMP 36.3–36.8; O2SAT 97–99
--- NOTE | 2024-05-02 03:56 | ED.GENADUL_ITS ---
Discharge Plan Disposition Patient Disposition: Home Condition: Improving Discharge Details Clinical Impression: Nausea and vomiting, Hypokalemia Primary Care Provider: Unknown,Unknown ED Provider: Mateusz Jensen Meds and New Rx's Prescriptions: Continued pantoprazole 40 mg tablet,delayed release (DR/EC) 40 mg PO DAILY norelgestromin-ethin.estradiol [Zafemy] 150-35 mcg/24 hr patch weekly 1 patch transdermal Q7D prochlorperazine maleate 5 mg tablet 5 mg PO QID PRNQty: 10 0RF Discharge Instructions Instructions: Nausea and Vomiting, Adult ED Additional Instructions: You were seen for recurrent nausea and vomiting with good response to droperidol and fluids once again. Your potassium was low again and was repleted. Would try to stick to a bland diet the rest of this weekend. You may continue use of the prochlorperazine. Follow-up with your primary care this week. Return to ED for any fever, persistent vomiting, abdominal pain, bloody diarrhea, other concerns. HPI General Mode of arrival: ambulatory . Date/Time Provider Initiated Documentation: 05/02/24 03:53 . Limitations to Documentation: no limitations . Information obtained by: patient, RN notes reviewed and old records reviewed . HPI Narrative: Patient presents to ED with recurrent nausea and vomiting. Patient seen in the ED last night for same. At that time had had 3 to 4 days of nausea and vomiting with some mild abdominal cramping but no diarrhea or fever. Patient treated with droperidol and fluids with improvement. Did well over the course of today into this evening. Woke up around 1 with recurrent nausea and vomiting. Took prescribed prochlorperazine but unable to keep it down. Has continued to vomit and has her sister's wedding today to attend. Denies any fever. Continues to deny abdominal pain or diarrhea. Denies any hematemesis. Has had this problem in the past and had been on metoclopramide. This did not help with onset of symptoms 4 days ago. Related Data Home Medications ?Medication ?Instructions ?Recorded ?Confirmed norelgestromin 150 mcg-e.estradiol 1 patch transdermal Q7D 03/19/24 05/02/24 35 mcg/24 hr weekly transderm patch (Zafemy) pantoprazole 40 mg tablet,delayed 40 mg PO DAILY 03/24/24 05/02/24 release prochlorperazine maleate 5 mg 5 mg PO QID PRN #10 tabs 05/01/24 05/02/24 tablet Previous Rx's ?Medication ?Instructions ?Recorded prochlorperazine maleate 5 mg 5 mg PO QID PRN #10 tabs 05/01/24 tablet Allergies Allergy/AdvReac Type Severity Reaction Status Date / Time No Known Allergies Allergy Verified 05/02/24 03:58 General MELANIA: 3 Review of Systems Narrative: Per HPI Exam Narrative Exam Narrative: Const: WDWN female in NAD. VS per triage. HEENT: NC/AT. Normal facial exam. Neck: Supple. Trachea midline. Lungs: Normal respiratory effort. Cor: RRR. Good radial pulses. GI: Soft/ND/NT. Neuro: A+O x 3. Normal speech, mentation, gait. Cranial nerves II - XII grossly intact. No gross motor or sensory deficit. Ext: No C/C/E. Medical Decision Making Patient returns with recurrent nausea and vomiting. She had done well during the day into the evening after being seen here last night and receiving droperidol, fluids, potassium repletion. Her abdomen is benign. She is not complaining of abdominal pain. IV established and fluids started once again. Will repeat her BMP given the hypokalemia last night. Droperidol ordered. Patient's potassium is low once again at 3.1. Bicarb also low at 18 with a gap of 15.8. A second liter of fluid is ordered. IV potassium replacement ordered. Patient feeling much better at this point. Will plan discharge home once potassium is finished running in. She has prochlorperazine available to her. Follow-up with primary care next week. Return precautions provided. Lab Data Lab results reviewed: Yes I reviewed the patient's lab results. Lab results narrative: Reviewed labs from last night's ED visit. Urine hCG was negative. Potassium was low and repleted. 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 Grandfather Essential hypertension both GF Heart disease PGF- massive VA age 62yr- Hyperlipidemia Parkinson disease MGF Social History Smoking/Tobacco Use Status: Never Second Hand Exposure: No Smoking risk assessment performed?: Yes Alcohol Intake: current Alcohol Intake frequency: holidays/special occasions only Drug use: Rarely Substance use type: marijuana Housing: house Communication Needs: None Education Level: high school Details: [employer] Pets and animals: Yes Pets and animals: dog(s) Do you feel safe at home: Yes Do you feel safe in your relationship?: Yes Female Reproductive History Menstrual Age of Menarche: 14 Duration of menses: 3-5 days History History 0 Para Hx # Term Pregnancies Multiple births Hx # Pregnancies Ectopic pregnancies AB induced Hx Number of Living Children AB spontaneous
[2024-05-02] MEDS: Droperidol 5 MG/2 ML VIAL 2.5 MG IVP (04:08)
[2024-05-02] MEDS: Lactated Ringers 1,000 ML 1000 ML IV ×2 (04:08→05:12)
[2024-05-02 04:33] LABS: Anion Gap 15.8 mmol/L (3-11); BUN 14 mg/dL (7-18); CO2 18.2 mmol/L (21.0-32.0); CREATININE 0.8 mg/dL (0.55-1.02); Calcium 9.5 mg/dL (8.5-10.1); Chloride 100 mmol/L (98-107); Estimated GFR 108.78 (mL/min/1.73m2); Glucose 103 mg/dL (74-106); Potassium 3.1 mmol/L (3.5-5.1); Sodium 134 mmol/L (136-145)
[2024-05-02] MEDS: POTASSIUM CHLORIDE 10 MEQ/100 ML BAG 100 MEQ IVINF ×2 (05:12→06:18)
== END 2024-05-02 07:27 | disposition home or self-care (01) ==
PROVIDERS: Emergency Provider Emergency Medicine
DX: R11.2 Nausea with vomiting, unspecified (principal); E87.6 Hypokalemia
CPT/HCPCS: 36415; 80048; 96361; 96365; 96366; 96375; 99284; J1790; J3480